=== PATIENT | male | born 1935 | race Caucasian/White ===

== ENCOUNTER 2018-08-12 11:57 | Day surgery (SDC) | payer OTHER ==
[~2018-08-12] VITALS: Ht 170.2 cm; Wt 77.0 kg
[~2018-08-12 11:57] MED LIST: ATOR20 PO; Aspirin EC81 MG PO; Cinnamon500 MG PO; Colace100 MG PO; Fish Oil Conc1000 MG PO; GLUC500 PO; LOSARTAN-HCTZ1 EAC1 PO; METF500 PO; Ofloxacin5 M1; Prednisolone Ace5 ML; SIMBRINZA 1%-0.28 ML BOTHEYES; Senna8.6 MG PO; THERA1 EACH PO
--- NOTE | 2018-08-12 15:30 | NUR ---
TR BAND 2CC'S AIR REMOVED-NO BLOOD NOTED.
--- NOTE | 2018-08-12 15:35 | NUR ---
TR BAND 2CC'S AIR REMOVED-NO BLEEDING NOTED
--- NOTE | 2018-08-12 16:26 | NUR ---
DISCHARGE PT REMAINED A&OX3 AND DENIED ANY PAIN DURING RECOVERY. R RADIAL SITE-TR BAND REMOVED-CLOTH DOT AND WHITE BOARD IN [id number] HEMATOMA NOTED. PT UP TO RESTROOM AND DRESSED SELF WITH LITTLE ASSISTANCE. IV DC'D WITH CANULA IN TACT. DISCHARGE PAPERWORK GONE OVER WITH PT AND SPOUSE. PT AND SPOUSE VERBALLY STATED THE UNTERSTANTING OF THE DISCHARGE EDUCATION GIVEN. PT WHEELED OUT BY SAMINA Tapia RN.
== END 2018-08-12 16:30 | disposition home or self-care (01) ==
LOC: MHTC 11:57
PROC: B2111ZZ Fluoroscopy of Multiple Coronary Arteries using Low Osmolar Contrast (ICD-10-PCS; principal; 2018-08-12)
DX: I25.10 Atherosclerotic heart disease of native coronary artery without angina pectoris (principal); E78.00 Pure hypercholesterolemia, unspecified; I10 Essential (primary) hypertension; I65.23 Occlusion and stenosis of bilateral carotid arteries; I08.0 Rheumatic disorders of both mitral and aortic valves; R00.1 Bradycardia, unspecified; E11.9 Type 2 diabetes mellitus without complications; L71.9 Rosacea, unspecified; Z88.8 Allergy status to other drugs, medicaments and biological substances; Z85.820 Personal history of malignant melanoma of skin; Z79.899 Other long term (current) drug therapy; Z79.82 Long term (current) use of aspirin; Z79.84 Long term (current) use of oral hypoglycemic drugs; Z79.52 Long term (current) use of systemic steroids
CPT/HCPCS: 93454; 99152; 99153; C1769; C1894; J1644; J2250; J3010; J7030; Q9967

== ENCOUNTER 2021-04-22 08:38 | Emergency (ER) | payer OTHER ==
[~2021-04-22] VITALS: Ht 175.3 cm; Wt 74.8 kg
[2021-04-22] MEDS ORDERED: CEPH500 PO ×2 (10:20→13:56)
== END 2021-04-22 10:52 | disposition home or self-care (01) ==
LOC: ER 08:38
DX: S01.311A Laceration without foreign body of right ear, initial encounter (principal); Z23 Encounter for immunization; Z88.8 Allergy status to other drugs, medicaments and biological substances; Z79.84 Long term (current) use of oral hypoglycemic drugs; Z79.82 Long term (current) use of aspirin; Z79.899 Other long term (current) drug therapy; W18.11XA Fall from or off toilet without subsequent striking against object, initial encounter
CPT/HCPCS: 12013; 90471; 90714; 99283; A9270

== ENCOUNTER 2021-04-24 08:49 | Emergency (ER) | payer OTHER ==
[~2021-04-24] VITALS: Ht 172.7 cm; Wt 72.6 kg
[~2021-04-24 08:49] MED LIST changes: +CEPH500 PO
== END 2021-04-24 09:19 | disposition home or self-care (01) ==
LOC: ER 08:49
DX: S01.311D Laceration without foreign body of right ear, subsequent encounter (principal); X58.XXXD Exposure to other specified factors, subsequent encounter
CPT/HCPCS: 99282

== ENCOUNTER 2022-05-31 16:56 | Emergency (ER) | payer OTHER ==
[~2022-05-31] VITALS: Ht 172.7 cm; Wt 77.1 kg
[2022-05-31 17:02] VITALS: BP 185/62
[2022-05-31 17:28] LABS: BASOPHILS PERCENT AUTO 1 % (0-2); EOSINOPHILS ABSOLUTE AUTO 0.22 K/mm3 (0.00-0.68); EOSINOPHILS PERCENT AUTO 2 % (0-6); Hematocrit 30.6 % (37.0-53.0); Hemoglobin 10.4 g/dL (13.5-17.5); IMMATURE GRAN ABSOLUTE AUTO 0.12 K/mm3 (0.00-0.10); IMMATURE GRAN PERCENT AUTO 1 % (0-1); LYMPHOCYTES ABSOLUTE AUTO 2.57 K/mm3 (0.84-5.20); LYMPHOCYTES PERCENT AUTO 24 % (21-46); MONOCYTES ABSOLUTE AUTO 1.29 K/mm3 (0.16-1.47); MONOCYTES PERCENT AUTO 12 % (4-13); Mean Corpuscular HGB 30.5 pg (26.0-34.0); Mean Corpuscular Volume 90 fL (80-100); Mean Platelet Volume 9.4 fL (9.1-12.4); NEUTROPHILS ABSOLUTE AUTO 6.45 K/mm3 (1.96-9.15); NEUTROPHILS PERCENT AUTO 60 % (41-73); Platelet Count 379 K/mm3 (150-400); RDW Coefficient Variation 14.2 % (11.7-14.2); Red Blood Cell Count 3.41 M/mm3 (4.30-5.90); White Blood Cell Count 10.75 K/mm3 (4.00-11.30)
[2022-05-31 17:57] LABS: Albumin, Blood 3.1 g/dL (3.4-5.0); Albumin/Globulin Ratio 0.9 (0.8-1.8); Bilirubin, Total 0.2 mg/dL (0.1-1.0); Bun/Creatinine Ratio 18.7 (12.0-20.0); Calcium, Blood 9.3 mg/dL (8.5-10.1); Creatinine, Blood 1.71 mg/dL (0.60-1.20); Globulin, Blood 3.6 g/dL (2.2-4.0); Potassium, Blood 4.3 mmol/L (3.5-5.5); Total Protein, Blood 6.7 g/dL (6.4-8.2)
== END 2022-05-31 20:30 | disposition home or self-care (01) ==
LOC: ER 16:56
PROVIDERS: Emergency Medicine
DX: S22.41XA Multiple fractures of ribs, right side, initial encounter for closed fracture (principal); R74.8 Abnormal levels of other serum enzymes; Z88.8 Allergy status to other drugs, medicaments and biological substances; Z79.82 Long term (current) use of aspirin; Z79.52 Long term (current) use of systemic steroids; W19.XXXA Unspecified fall, initial encounter
CPT/HCPCS: 71045; 80053; 83690; 85025; 99284-25; A9270

== ENCOUNTER 2023-04-04 15:49 | Emergency (ER) | payer OTHER ==
[~2023-04-04] VITALS: Ht 175.3 cm; Wt 83.9 kg
[2023-04-04 18:36] VITALS: BP 116/46
[2023-04-04 19:06] LABS: BASOPHILS ABSOLUTE AUTO 0.09 K/mm3 (0.00-0.23); BASOPHILS PERCENT AUTO 1 % (0-2); EOSINOPHILS ABSOLUTE AUTO 0.13 K/mm3 (0.00-0.68); EOSINOPHILS PERCENT AUTO 1 % (0-6); Hematocrit 43.2 % (37.0-53.0); Hemoglobin 14.1 g/dL (13.5-17.5); IMMATURE GRAN ABSOLUTE AUTO 0.15 K/mm3 (0.00-0.10); IMMATURE GRAN PERCENT AUTO 1 % (0-1); LYMPHOCYTES ABSOLUTE AUTO 2.38 K/mm3 (0.84-5.20); LYMPHOCYTES PERCENT AUTO 18 % (21-46); MONOCYTES ABSOLUTE AUTO 1.12 K/mm3 (0.16-1.47); MONOCYTES PERCENT AUTO 9 % (4-13); Mean Corpuscular HGB 28.3 pg (26.0-34.0); Mean Corpuscular HGB Conc 32.6 g/dL (31.5-36.5); Mean Corpuscular Volume 87 fL (80-100); NEUTROPHILS ABSOLUTE AUTO 9.26 K/mm3 (1.96-9.15); NEUTROPHILS PERCENT AUTO 71 % (41-73); NRBC ABSOLUTE 0.25 K/mm3 (0.00-0.02); NRBC Auto 1.9 /100 WBC (0.0-0.2); Platelet Count 546 K/mm3 (150-400); RDW Coefficient Variation 14.6 % (11.7-14.2); RDW Standard Deviation 44.6 fL (35.1-46.3); Red Blood Cell Count 4.99 M/mm3 (4.30-5.90); White Blood Cell Count 13.13 K/mm3 (4.00-11.30)
[2023-04-04 19:25] LABS: Albumin, Blood 2.7 g/dL (3.4-5.0); Albumin/Globulin Ratio 0.6 (0.8-1.8); Bilirubin, Total 0.3 mg/dL (0.1-1.0); Bun/Creatinine Ratio 15.8 (12.0-20.0); Calcium, Blood 9.5 mg/dL (8.5-10.1); Creatinine, Blood 2.02 mg/dL (0.60-1.20); Globulin, Blood 4.5 g/dL (2.2-4.0); Potassium, Blood 5.2 mmol/L (3.5-5.5); Total Protein, Blood 7.2 g/dL (6.4-8.2)
== END 2023-04-04 19:59 | disposition left against medical advice (07) ==
LOC: ER 15:49
PROVIDERS: Physician Assistant
DX: R62.7 Adult failure to thrive (principal); Z53.29 Procedure and treatment not carried out because of patient's decision for other reasons
CPT/HCPCS: 70450; 80053; 85025; 93005; 93010; 99283-25

== ENCOUNTER 2023-04-22 07:47 | Observation (INO) | payer OTHER ==
[~2023-04-22] VITALS: Ht 172.7 cm; Wt 69.0 kg
[2023-04-22] MEDS ORDERED: AMLO10 PO (08:13)
[2023-04-22] MEDS ORDERED: CHLO25B PO (08:14)
[2023-04-22] MEDS ORDERED: PSYLLIUM (08:15)
[2023-04-22] MEDS ORDERED: VITAMIN B-1250 MCG (08:15)
[2023-04-22] MEDS ORDERED: Diovan40 MG PO (08:15)
[2023-04-22] MEDS ORDERED: FISH OIL 1,0001 EA10 PO (08:16)
[2023-04-22] MEDS ORDERED: NS 1,000 ML IV SCH (08:40)
[2023-04-22 08:41] LABS: BASOPHILS ABSOLUTE AUTO 0.09 K/mm3 (0.00-0.23); BASOPHILS PERCENT AUTO 1 % (0-2); EOSINOPHILS ABSOLUTE AUTO 0.26 K/mm3 (0.00-0.68); EOSINOPHILS PERCENT AUTO 3 % (0-6); Hematocrit 38.1 % (37.0-53.0); Hemoglobin 12.5 g/dL (13.5-17.5); IMMATURE GRAN ABSOLUTE AUTO 0.05 K/mm3 (0.00-0.10); IMMATURE GRAN PERCENT AUTO 1 % (0-1); LYMPHOCYTES ABSOLUTE AUTO 1.93 K/mm3 (0.84-5.20); LYMPHOCYTES PERCENT AUTO 19 % (21-46); MONOCYTES ABSOLUTE AUTO 0.93 K/mm3 (0.16-1.47); MONOCYTES PERCENT AUTO 9 % (4-13); Mean Corpuscular HGB 27.8 pg (26.0-34.0); Mean Corpuscular HGB Conc 32.8 g/dL (31.5-36.5); Mean Corpuscular Volume 85 fL (80-100); Mean Platelet Volume 10.6 fL (9.1-12.4); NEUTROPHILS ABSOLUTE AUTO 6.73 K/mm3 (1.96-9.15); NEUTROPHILS PERCENT AUTO 67 % (41-73); Platelet Count 338 K/mm3 (150-400); RDW Standard Deviation 46.1 fL (35.1-46.3); Red Blood Cell Count 4.49 M/mm3 (4.30-5.90); White Blood Cell Count 9.99 K/mm3 (4.00-11.30)
[2023-04-22 09:15] LABS: Albumin, Blood 2.2 g/dL (3.4-5.0); Albumin/Globulin Ratio 0.6 (0.8-1.8); Bilirubin, Total 0.3 mg/dL (0.1-1.0); Creatinine, Blood 2.14 mg/dL (0.60-1.20); Globulin, Blood 3.9 g/dL (2.2-4.0); Magnesium, Blood 2.6 mg/dL (1.6-2.4); Potassium, Blood 4.2 mmol/L (3.5-5.5); Total Protein, Blood 6.1 g/dL (6.4-8.2)
[2023-04-22] MEDS ORDERED: AmLODIPine Besylate 5 MG Tab PO ONE (09:30)
[2023-04-22] MEDS ORDERED: Losartan Potassium 50 MG Tab PO ONE (09:30)
[2023-04-22 09:44] LABS: Source, Urine Clean Catch
[2023-04-22 09:49] LABS: Appearance, Urine Clear (Clear); Bilirubin, Urine Neg (Neg); Blood, Urine Neg (Neg); Color, Urine Yellow (P-Yellow); Glucose Qualitative, Urine 4+ (Neg); Ketones, Urine Neg (Neg); Leukocyte Esterase, Urine Neg (Neg); Nitrite, Urine Neg (Neg); Protein, Urine 4+ (Neg); Urobilinogen, Urine NORM (Normal); pH, Urine 6.5 (5.0-8.0)
[2023-04-22 09:55] LABS: White Blood Cells, Urine 0-2 /hpf (0-5)
[2023-04-22 09:56] LABS: Bacteria Rare /hpf; Red Blood Cells, Urine 0-2 /hpf (0-2); Squamous Epithelial Cells Rare /hpf (Few)
--- NOTE | 2023-04-22 10:56 | NUR ---
Pt open eyes a bit unble to answer questions. pt flushed and rigid. Ansers no to headache questions. at bedside showing significant caregiver stress. Son is with her. She [facility]. He is up all night and anxious trying to toilet. Multiple falls and injuries. Review of hospice. His daughter is a retired nurse and brought it up with family. They do not have a preferance. ER protective services social worker will falitate intake. Plan is extended stay in ER due to wifes frailty. and high risk for returning to hospital. Will DC tomorrow to SNF or home with caregivers and hospice intake.
[2023-04-22] MEDS ORDERED: HydrALAZINE HCl 20 MG / ML 1ML Vial IV ONE (17:15)
[2023-04-22] MEDS ORDERED: LORazepam 2 MG/ML 1ML Injection IV PRN (17:15)
[2023-04-22] MEDS ORDERED: Losartan Potassium 50 MG Tab PO SCH (21:00)
[2023-04-22] MEDS ORDERED: Atorvastatin 10 MG Tab PO SCH (21:00)
[2023-04-23] MEDS ORDERED: AmLODIPine Besylate 5 MG Tab PO SCH (09:00)
[2023-04-23] MEDS ORDERED: Aspirin 81 MG TabEC PO SCH (09:00)
[2023-04-23] MEDS ORDERED: MetFORMIN HCl 500 mg PO SCH (09:00)
[2023-04-23] MEDS ORDERED: NS 1,000 ML IV SCH (18:20)
[2023-04-23] MEDS ORDERED: Ondansetron HCl 2 MG / ML 2ML Vial IV PRN (18:20)
[2023-04-23] MEDS ORDERED: Acetaminophen 325 MG TABLET PO PRN (18:20)
[2023-04-23] MEDS ORDERED: FLU VACC QS2023-24(6MOS UP)/PF 60 MCG/0.5 ML SYRINGE IM SCH (18:25)
[2023-04-23 21:06] VITALS: BP 180/58
[2023-04-23] MEDS ORDERED: QUEtiapine Fumarate 25 MG Tab PO SCH (21:25)
[2023-04-23] MEDS ORDERED: Haloperidol Lactate Inj. 5 MG/ML Injection IV PRN (23:15)
[2023-04-24 03:25] VITALS: BP 152/63
[2023-04-24 07:38] VITALS: BP 147/46
[2023-04-24] MEDS ORDERED: Sennosides 8.6 MG Tab PO SCH (09:00)
[2023-04-24] MEDS ORDERED: Enoxaparin 30 MG/0.3 ML SYR SC SCH (09:00)
[2023-04-24 09:49] LABS: Bun/Creatinine Ratio 22.3 (12.0-20.0); Calcium, Blood 8.6 mg/dL (8.5-10.1); Creatinine, Blood 1.88 mg/dL (0.60-1.20); Potassium, Blood 3.6 mmol/L (3.5-5.5)
--- NOTE | 2023-04-24 11:48 | NUR ---
Pt being placed on comfort care this morning as agreed upon by and adult children. He appears to be resting comfortably now as opposed to his previous behavior in ED. Family report multiple falls and increased confusion this year, along with decrease in appetite and memory. He has been living at home with spouse, with adult children assisting as needed. The patient has not been accepted at [facility], or local SNF due to previous behaviors and fall risk. However, with changes to medication and his rapidly declining physical condition the patient may now be a candidate for placement and hospice. If local placement cannot be obtained, family may be willing to care for him at home with hospice assist. Meeting with family today to discuss further.
[2023-04-24] MEDS ORDERED: LORazepam 0.5 MG Tab PO PRN (12:05)
[2023-04-24] MEDS ORDERED: Morphine Sulfate 20 MG/1ML 1 ML Oral Syringe SL PRN (12:05)
--- NOTE | 2023-04-24 18:48 | NUR ---
SHIFT SUMMARY PT AXO X1-2 BUT SLEPT THROUGHOUT THE SHIFT. PT WAS MEDICATED X1 FOR PAIN AND X1 FOR ANXIETY, SEE MAR. BLADDER SCAN THIS MORNING REVEALED >800, MALDONADO PLACED FOR COMFORT. PT TRANSITIONED TO COMFORT CARE THIS SHIFT. FAMILY PRESENT FOR MOST OF THE DAY. IV PATENT AND SALINE LOCKED. BED IN LOW POSITION, CALL LIGHT WITHIN REACH, BED ALARM ON.
[2023-04-25] MEDS ORDERED: TAMS.4ER PO (01:15)
[2023-04-25] MEDS ORDERED: FURO20 PO (01:17)
[2023-04-25] MEDS ORDERED: [UNRECOGNIZED DRUG - CODE] SC (01:22)
--- NOTE | 2023-04-25 05:42 | NUR ---
END OF SHIFT SUMMARY PT ON COMFORT CARE, SLEPT ON AND OFF THROUGHOUT THE NIGHT. FREQUENT SAFETY CHECKS COMPLETED. PT ATTEMPTED TO GET UP OOB ON HIS OWN, THROWING HIS LEGS OVER THE SIDE RAIL OF THE BED. PT EASILY REDIRECTED BACK INTO BED. Q2 TURNS/REPOSITIONING FOR COMFORT. PRN PAIN MEDICATION SUBLINGUAL ROXANOL GIVEN WITH GOOD RESULTS. PRN IV HALDOL GIVEN WHICH WAS EFFECTIVE. MALDONADO CATH DRAINING WELL, YELLOW COLORED URINE. PT ON RA, NO SIGNS OF RESP DISTRESS. RESP RATE EVEN AND UNLABORED. PT TOOK THE SMALL PO SCHEDULED MEDICATIONS WHOLE IN APPLESAUCE. CALL LIGHT WITHIN REACH, WCTM.
--- NOTE | 2023-04-25 12:15 | NUR ---
DISCHARGE SUMMARY PT DISCHARGED TO HOME ON HOSPICE. PT LEFT ROOM JUST PRIOR TO THIS NOTE VIA JOSUE WITH TRANSPORTER SERVICE. THIS NURSE CALLED PT'S FAMILY TO MAKE SURE THEYRE HOME AND READY FOR PATIENT, CONFIRMED. NO IV IN PLACE AT TIME OF DC. MALDONADO PATENT AND DRAINING. DRESSINGS TO FOREARMS REPLACED WITH MEPITELS AND THEN MEPILEX OVER.
== END 2023-04-25 12:12 | disposition hospice, home (50) ==
LOC: ER 07:47 → MEDS 07:48 → ENPENDDIS 04-25 10:14 → MEDS 04-25 12:12
PROVIDERS: Nurse Practitioner Acute Care; Physician Assistant; ADMIT Hospitalist
DX: R62.7 Adult failure to thrive (principal); F03.90 Unspecified dementia, unspecified severity, without behavioral disturbance, psychotic disturbance, mood disturbance, and anxiety; I10 Essential (primary) hypertension; E11.9 Type 2 diabetes mellitus without complications; E78.5 Hyperlipidemia, unspecified; G91.9 Hydrocephalus, unspecified; Z91.81 History of falling; Z88.8 Allergy status to other drugs, medicaments and biological substances; Z79.899 Other long term (current) drug therapy; Z79.84 Long term (current) use of oral hypoglycemic drugs
CPT/HCPCS: 36415; 51702; 70450; 71045; 80048; 80053; 81001; 82947; 83735; 85025; 96361; 96374; 96375; 96376; 99285-25; A9270; G0378; J0360; J1630; J2060; J7030